=== PATIENT | female | born 1960 | race Caucasian/White ===

== ENCOUNTER 2019-01-27 18:31 | Emergency (ER) | payer OTHER, SELFPAY ==
[2019-01-27 18:32] VITALS: BP 150/78; PULSE 80; RESP 17; TEMP 36.7; O2SAT 95; BMI 24.9
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
--- NOTE | 2019-01-27 18:50 | CM.ED ---
Social Work Referral: Suicidal Informant: Dr. Mcmullen Telephone call from [facility], Amanda. Amanda stating to have already assessed patient and to be coming to the hospital at this time. Amanda stating that patient is not suicidal but manic. Met with patient in room to assess suicidal risk to assess for suicide precautions. Patient denies active suicidal thoughts or plan. Patient stating to feel depressed and down. Patient stating I am not sure what is wrong with me. My husbands says I am suicidal. Collaborating with Dr. Mcmullen, agreeing that patient does not qualify for suicidal precautions at this time. [facility] to complete transfer. Stormy Castellanos SHUTTLE DRIVER, KEE
[2019-01-27 19:34] LABS: Absolute Lymphocyte Count 2.61 X10^3/uL (0.83-4.51); Absolute Neutrophil Count 4.6 X10^3/uL (2.0-7.7); Basophil# 0.06 X10^3/uL; Basophil% 0.7 % (0-1); Eosinophil# 0.06 X10^3/uL; Eosinophils% 0.7 % (0-5); Hematocrit 47.3 % (37-47); Hemoglobin 15.4 g/dL (12.0-15.0); Lymphocyte # 2.61 X10^3/ul (4.0); Lymphocyte % 32.1 % (19-41); Mean Corp Hgb Conc 32.6 g/dL (32-36); Mean Corpuscular Volume 89.1 fL (81-99); Mean Platelet Vol. 9.8 fl (6.2-12.0); Monocyte# 0.81 X10^3/uL; NRBC Flagged by Analyzer 0 % (0-5); Neutrophil # 4.57 X10^3/uL (2.7-7.7); Neutrophil % 56.3 % (47-70); Platelet Count 367 K/mm3 (150-450); RBC Distribution Width CV 13.2 % (11.6-14.6); RBC Distribution Width SD 43.2 fl (35.1-43.9); Red Blood Count 5.31 M/mm3 (4.2-5.4); White Blood Count 8.1 K/mm3 (4.4-11.0)
[2019-01-27 19:55] LABS: ALB/GLOB Ratio 1.1 RATIO (0.9-2.4); AST(SGOT) 10 U/L (15-37); Alanine Aminotransfer ALT/SGPT 15 U/L (13-56); Albumin, Serum 3.7 g/dL (3.2-5.0); Alkaline Phosphatase 102 U/L (45-117); Anion Gap 5 (5-15); BUN 14 mg/dL (7-18); BUN/Creat Ratio 15.6 RATIO (10-20); Calcium,Total 9.5 mg/dL (8.5-10.1); Chloride 107 mmol/L (98-107); EST Glomerular Filtration Rate 69 mL/min (>60); Est Glom Filt Rate - Afr Amer 83 mL/min (>60); Estimated Creatinine Clearance 57.74 ml/min; Globulin 3.4 g/dL (2.2-4.2); Glucose 98 mg/dL (74-106); Potassium 3.9 mmol/L (3.5-5.1); Protein, Total 7.1 g/dL (6.4-8.2); Sodium Level 139 mmol/L (136-145)
[2019-01-27 19:57] LABS: Alcohol, Blood (Medical)-Serum < 3.0 mg/dL
[2019-01-27 20:16] VITALS: RESP 15
[2019-01-27 21:05] VITALS: RESP 17
[2019-01-27 21:27] LABS: Amphetamine Urine VISTA NEGATIVE (<1000 ng/mL); Barbiturate Urine VISTA NEGATIVE (< 200 ng/mL); Benzodiazepine Urine VISTA POSITIVE (< 200 ng/mL); Cocaine Urine VISTA NEGATIVE (< 300 ng/mL); Ecstacy Urine VISTA NEGATIVE (< 500 ng/mL); Methadone Urine VISTA NEGATIVE (< 300 ng/mL); PCP Urine VISTA NEGATIVE (< 25 ng/mL); THC Urine VISTA POSITIVE (< 50 ng/mL); Vista UDS pH Range 5
[2019-01-27 22:23] VITALS: RESP 16
[2019-01-27 23:58] VITALS: BP 124/80; PULSE 63; RESP 16; O2SAT 96
[2019-01-28] VITALS (9 sets, daily range): BP systolic 124–141; BP diastolic 80–98; PULSE 63–111; RESP 14–17; O2SAT 95–97
--- NOTE | 2019-01-28 00:57 | ED.RN ---
information sent to [facility] for possible admission
--- NOTE | 2019-01-28 07:15 | NURSING ---
PATTIE CORTEZ, CALLED. THEY ARE IN SHIFT CHANGE, BUT LOOKING AT CHART
--- NOTE | 2019-01-28 08:11 | NURSING ---
called [facility] for transport. eta is 30 min
--- NOTE | 2019-01-28 08:21 | ED.RN ---
attempted to call report. nurse states she will call back due to certain activity occurring on unit.
== END 2019-01-28 09:02 ==
PROVIDERS: Emergency Provider Emergency Medicine
DX: F31.9 Bipolar disorder, unspecified (principal); R63.4 Abnormal weight loss; F17.210 Nicotine dependence, cigarettes, uncomplicated; Z88.5 Allergy status to narcotic agent
CPT/HCPCS: 80053; 80307; 80320; 85025; 99283; G0480